=== PATIENT | female | born 1950 | race African-American/Black ===

== ENCOUNTER 2016-12-13 19:04 | Emergency (ER) | payer OTHER ==
[2016-12-13] MEDS ORDERED: ASPIRIN 81 MG CHEW TAB ONE (19:25)
== END 2016-12-14 00:04 | disposition home or self-care (01) ==
LOC: ER 19:04
DX: R07.2 Precordial pain (principal); K21.9 Gastro-esophageal reflux disease without esophagitis; I25.10 Atherosclerotic heart disease of native coronary artery without angina pectoris; I10 Essential (primary) hypertension; Z87.891 Personal history of nicotine dependence
CPT/HCPCS: 36415; 71010; 80053; 82550; 83735; 84484; 85025; 85610; 85730; 93005